=== PATIENT | female | born 1985 | race Caucasian/White ===

== ENCOUNTER 2016-09-29 20:25 | Emergency (ER) | payer SELFPAY ==
[~2016-09-29] VITALS: Ht 167.6 cm; Wt 72.6 kg
[2016-09-29] MEDS ORDERED: IPRATROPIUM BROMIDE 0.5 MG/2.5 ML NEBU NEB ONE (21:45)
[2016-09-29] MEDS ORDERED: ALBUTEROL SULFATE 2.5 MG/3 ML NEBU NEB ONE (21:45)
[2016-09-29] MEDS ORDERED: IPRATROPIUM BROMIDE 0.5 MG/2.5 ML NEBU ONE (21:52)
[2016-09-29] MEDS ORDERED: ALBUTEROL SULFATE 2.5 MG/3 ML NEBU ONE (21:52)
[2016-09-29 22:34] LABS: *BLOOD, URINE 3+ (NEGATIVE); *CLARITY,URINE SLIGHTLY CLOUDY (CLEAR); *COLOR,URINE YELLOW (YELLOW); *KETONES,URINE NEGATIVE (NEGATIVE); *PROTEIN,URINE 2+ (NEGATIVE); *URINE HCG, QUAL NEGATIVE (NEGATIVE); *UROBILINOGEN,URINE 0.2 E.U./dl (NORMAL); LEUKOCYTE ESTERASE ,URINE NEGATIVE (NEGATIVE); NITRITE, URINE NEGATIVE (NEGATIVE); PH,URINE 6.5 (5.0-8.0); UGLUCOSE NEGATIVE (NEGATIVE)
[2016-09-29 22:35] LABS: *BILIRUBIN,URIN 1+ (NEGATIVE)
[2016-09-29 22:36] LABS: BACTERIA,URINE FEW /HPF (NONE SEEN); RBC,URINE 80-100 /HPF (0-3); SQUAMOUS EPITHELIAL CELL,UR MODERATE /HPF (NONE SEEN); WBC,URINE 0-3 /HPF (0-3)
[2016-09-30] MEDS ORDERED: IBUPROFEN 600 MG TABLET PO ONE
[2016-09-30] MEDS ORDERED: IBUPROFEN 600 MG TABLET ONE (00:08)
--- NOTE | 2016-09-30 00:18 | NUR ---
Patient discharged to home in stable conditon. Written and verbal after care instructions given. Patient verbalizes understanding of instructions.
[2016-09-30 00:19] VITALS: BP 128/80
== END 2016-09-30 00:18 | disposition home or self-care (01) ==
LOC: ER 20:30
DX: J40 Bronchitis, not specified as acute or chronic (principal); B34.9 Viral infection, unspecified; F10.20 Alcohol dependence, uncomplicated; N89.8 Other specified noninflammatory disorders of vagina
CPT/HCPCS: 71010; 84703; A4663; J3590

== ENCOUNTER 2017-09-22 17:13 | Emergency (ER) | payer MEDICAID ==
[~2017-09-22] VITALS: Ht 162.6 cm; Wt 61.2 kg
[2017-09-22] MEDS ORDERED: TETRACAINE HCL 0.5% OPHT DROP 2 ML BOTTLE ONE (17:32)
[2017-09-22] MEDS: TETRACAINE HCL 0.5% OPHT DROP 2 ML BOTTLE OP ONE (17:35)
--- NOTE | 2017-09-22 17:42 | NUR ---
PATIENT WAS SEEN BY DR ZALDIVAR FOR "SCRATCH IN EYE". DC and follow up instrutions given and explained to patient who states she understands all instructions.
== END 2017-09-22 17:44 | disposition home or self-care (01) ==
LOC: ER 17:17
DX: S05.02XA Injury of conjunctiva and corneal abrasion without foreign body, left eye, initial encounter (principal); X58.XXXA Exposure to other specified factors, initial encounter; Y93.89 Activity, other specified; Y92.89 Other specified places as the place of occurrence of the external cause; Y99.8 Other external cause status
CPT/HCPCS: A4663

== ENCOUNTER 2017-11-29 01:30 | Emergency (ER) | payer SELFPAY ==
[~2017-11-29] VITALS: Ht 162.6 cm; Wt 61.2 kg
[2017-11-29] MEDS ORDERED: KETOROLAC TROMETHAMINE 30 MG INJ IM ONE (02:00)
[2017-11-29] MEDS ORDERED: CEPHALEXIN MONOHYDRATE 500 MG CAPSULE PO ONE (02:00)
[2017-11-29] MEDS ORDERED: CEPHALEXIN MONOHYDRATE 500 MG CAPSULE ONE (02:11)
[2017-11-29] MEDS ORDERED: KETOROLAC TROMETHAMINE 30 MG INJ ONE (02:11)
[2017-11-29 02:46] LABS: *URINE HCG, QUAL NEGATIVE (NEGATIVE)
--- NOTE | 2017-11-29 02:55 | NUR ---
Patient remains in bed, no acute distress noted. VSS
[2017-11-29] MEDS ORDERED: CEFTRIAXONE 500 MG VIAL ONE (03:13)
[2017-11-29] MEDS ORDERED: AZITHROMYCIN 250 MG TABLET ONE (03:13)
[2017-11-29] MEDS ORDERED: CEFTRIAXONE 500 MG VIAL IM ONE (03:15)
[2017-11-29] MEDS ORDERED: AZITHROMYCIN 250 MG TABLET PO ONE (03:15)
[2017-11-29] MEDS ORDERED: LIDOCAINE HCL 2% 20 ML VIAL ONE (03:16)
--- NOTE | 2017-11-29 03:17 | NUR ---
Patient discharged to home in stable conditon. Written and verbal after care instructions given. Patient verbalizes understanding of instructions. Ambulated from ER with stable gait. All belongings with patient.
[2017-11-29 03:24] VITALS: BP 130/74
== END 2017-11-29 03:27 | disposition home or self-care (01) ==
LOC: ER 01:30
DX: N39.0 Urinary tract infection, site not specified (principal); J02.8 Acute pharyngitis due to other specified organisms; B97.89 Other viral agents as the cause of diseases classified elsewhere
CPT/HCPCS: 36415; 84703; 86403; 87070; 87077; A4663; J0696; J1885; J3490; Q0144

== ENCOUNTER 2017-12-01 17:28 | Emergency (ER) | payer SELFPAY ==
[~2017-12-01] VITALS: Ht 167.6 cm; Wt 61.2 kg
--- NOTE | 2017-12-01 17:40 | NUR ---
Dr Trinh at the bedside for MSE.
[2017-12-01 18:04] LABS: BASOPHILS # (AUTO) 0.1 K/uL (0.0-8.0); BASOPHILS % (AUTO) 0.9 % (0.0-2.0); EOSINOPHILS # (AUTO) 0.2 K/uL (0.0-0.7); EOSINOPHILS % (AUTO) 2.8 % (0.0-7.0); HEMATOCRIT 38.9 % (31.2-41.9); HEMOGLOBIN 13.3 g/dL (10.9-14.3); LYMPHOCYTES # (AUTO) 1.3 K/uL (20.0-40.0); LYMPHOCYTES % (AUTO) 20.3 % (20.5-51.5); MEAN CORPUSCULAR HEMOGLOBIN 32.6 uug (24.7-32.8); MEAN CORPUSCULAR HGB CONC 34 g/dL (32.3-35.6); MEAN CORPUSCULAR VOLUME 95.7 fL (75.5-95.3); MONOCYTES # (AUTO) 0.6 K/uL (2.0-10.0); MONOCYTES % (AUTO) 9.1 % (0.0-11.0); NEUTROPHILS # (AUTO) 4.4 K/uL (1.8-8.9); NEUTROPHILS % (AUTO) 66.9 % (38.5-71.5); PLATELET COUNT (AUTO) 207 K/uL (179-408); RED BLOOD CELL COUNT(AUTO) 4.07 MIL/uL (3.63-4.92); WHITE BLOOD COUNT (AUTO) 6.5 K/uL (3.8-11.8)
[2017-12-01 18:06] LABS: *BILIRUBIN,URIN NEGATIVE (NEGATIVE); *BLOOD, URINE Trace-intact (NEGATIVE); *COLOR,URINE YELLOW (YELLOW); *KETONES,URINE NEGATIVE (NEGATIVE); *PROTEIN,URINE NEGATIVE (NEGATIVE); *UROBILINOGEN,URINE 0.2 E.U./dl (NORMAL); LEUKOCYTE ESTERASE ,URINE NEGATIVE (NEGATIVE); NITRITE, URINE NEGATIVE (NEGATIVE); PH,URINE 7.5 (5.0-8.0); UGLUCOSE NEGATIVE (NEGATIVE)
[2017-12-01 18:07] LABS: *URINE HCG, QUAL NEGATIVE (NEGATIVE)
[2017-12-01 18:11] LABS: *CLARITY,URINE SLIGHTLY HAZY (CLEAR)
[2017-12-01 18:11] LABS: CREATININE 0.8 mg/dL (0.6-1.3); POTASSIUM 4.5 mmol/L (3.5-5.1)
[2017-12-01 18:12] LABS: BACTERIA,URINE FEW /HPF (NONE SEEN); SQUAMOUS EPITHELIAL CELL,UR MODERATE /HPF (NONE SEEN)
--- NOTE | 2017-12-01 18:13 | NUR ---
Pt out of Er for ct.
--- NOTE | 2017-12-01 19:00 | NUR ---
ASSUMED CARE OF PT AT THIS TIME. VSS. PENDING [employer]ICOND[employer]
[2017-12-01] MEDS ORDERED: DOXYCYCLINE HYCLATE 100 MG TABLET ONE (20:56)
[2017-12-01] MEDS ORDERED: CEFTRIAXONE 500 MG VIAL ONE (20:57)
[2017-12-01] MEDS ORDERED: CEFTRIAXONE 500 MG VIAL IM ONE (21:00)
[2017-12-01] MEDS ORDERED: DOXYCYCLINE HYCLATE 100 MG TABLET PO ONE (21:00)
--- NOTE | 2017-12-01 21:12 | NUR ---
ultrasound complete. pelvic exam done. antibiotics given. awaiting official results of ultrasound.
--- NOTE | 2017-12-01 22:01 | NUR ---
Patient discharged to home in stable conditon. Written and verbal after care instructions given. Patient verbalizes understanding of instructions. All belongings with pt. VSS. No acute distress noted.
[2017-12-01 22:02] VITALS: BP 131/94
== END 2017-12-01 22:02 | disposition home or self-care (01) ==
LOC: ER 17:30
DX: N83.201 Unspecified ovarian cyst, right side (principal); N34.2 Other urethritis; Z90.49 Acquired absence of other specified parts of digestive tract
CPT/HCPCS: 36415; 74176; 76856; 80048; 81001; 84703; 85025; 87086; 87210; 96372; 99285; A4663; J0696; J3490

== ENCOUNTER 2018-08-05 15:45 | Emergency (ER) | payer SELFPAY ==
[~2018-08-05] VITALS: Ht 167.6 cm; Wt 65.8 kg
--- NOTE | 2018-08-05 16:14 | NUR ---
BARRERA LEYVA AT BEDSIDE FOR MSE.
[2018-08-05] MEDS ORDERED: KETOROLAC TROMETHAMINE 30 MG INJ IVP ONE (16:15)
[2018-08-05 16:25] LABS: *URINE HCG, QUAL NEGATIVE (NEGATIVE)
[2018-08-05 16:39] LABS: *BILIRUBIN,URIN NEGATIVE (NEGATIVE); *BLOOD, URINE Trace-lysed (NEGATIVE); *CLARITY,URINE CLEAR (CLEAR); *COLOR,URINE YELLOW (YELLOW); *KETONES,URINE TRACE (NEGATIVE); *UROBILINOGEN,URINE 0.2 E.U./dl (NORMAL); LEUKOCYTE ESTERASE ,URINE NEGATIVE (NEGATIVE); NITRITE, URINE NEGATIVE (NEGATIVE); UGLUCOSE NEGATIVE (NEGATIVE)
[2018-08-05 16:40] LABS: BACTERIA,URINE FEW /HPF (NONE SEEN); WBC,URINE 0-3 /HPF (0-3)
[2018-08-05 16:41] LABS: MUCUS,URINE MODERATE /LPF (0-FEW); SQUAMOUS EPITHELIAL CELL,UR FEW /HPF (NONE SEEN)
--- NOTE | 2018-08-05 16:58 | NUR ---
DPatient discharged to home in stable conditon. Written and verbal after care instructions given. Patient verbalizes understanding of instructions. PT D/C W/ PRESCRIPTION. ALL BELONGINGS W/ PT. PT SELF-AMBULATED W/O DIFFICULTY.
[2018-08-05 16:59] VITALS: BP 108/72
== END 2018-08-05 17:00 | disposition home or self-care (01) ==
LOC: ER 15:48
DX: N76.0 Acute vaginitis (principal)
CPT/HCPCS: 76856; 84703; A4663